=== PATIENT | male | born 1945 | race Caucasian/White ===

== ENCOUNTER 2020-06-01 02:34 | Inpatient (IN) | payer MEDICARE, BC ==
--- NOTE | 2020-06-01 05:07 | EDM.PDOC ---
ED HPI GENERAL MEDICAL PROBLEM - General Chief Complaint: Genitourinary Problem Stated Complaint: BLOOD IN CATHETER Time Seen by Provider: 06/01/20 02:44 - History of Present Illness INITIAL COMMENTS - FREE TEXT/NARRATIVE: Patient had a suprapubic catheter for urinary retention and difficult Alonso placement in March of this year comes from [facility] because he is got blood from his catheter. The patient has no symptoms. History of present illness: [] Review of systems: As per history of present illness and below otherwise all systems reviewed and negative. Past medical history: As per history of present illness and as reviewed below otherwise noncontributory. Surgical history: As per history of present illness and as reviewed below otherwise noncontributory. Social history: No reported history of drug or alcohol abuse. Family history: As per history of present illness and as reviewed below otherwise noncontributory. Physical exam: Constitutional - well developed, well-nourished and in no acute distress HEENT - normocephalic, no evidence of trauma - external nose and mouth normal - no mass in neck and no JVD - mucosae moist EYES - full EOM, PERRL, no icterus - no evidence of inflammation, injection, or drainage Respiratory - no respiratory distress, equal bilateral expansion GI -suprapubic catheter has no irritation around it and it not in any area of inflammation or tenderness. There is blood in the catheter. Abdomen soft without distension or organomegaly - normal bowel sounds - no guard or rebound Musculoskeletal no gross deformity of long bones or joints - no tenderness, swelling or edema Neurologic - Alert and oriented times four - CN II-XII grossly intact - motor sensory and coordination symmetrically normal Psychiatric - appropriate mood and affect with normal thought content Hematologic - No petechiae or purpura - mucosa appropriate color and sclera not pale - normal nail bed color and refill Integument - no rash or evidence of trauma - normal turgor Diagnostics: [] Therapeutics: [] Impression: [] Plan: [] Definitive disposition and diagnosis as appropriate pending reevaluation and review of above. - Related Data Allergies Allergy/AdvReac Type Severity Reaction Status Date / Time No Known Allergies Allergy Verified 06/01/20 03:02 Home Meds: Home Meds Acetaminophen [Tylenol] 650 mg PO Q4H PRN #15 tablet 03/25/20 [Rx] QUEtiapine [SEROquel] 25 mg PO BEDTIME #30 tablet 03/25/20 [Rx] atorvaSTATin [Lipitor] 80 mg PO BEDTIME #60 tablet 03/25/20 [Rx] cephALEXin [Keflex] 500 mg PO Q12H #8 cap 03/25/20 [Rx] lisinopriL [Lisinopril] 20 mg PO DAILY #30 03/25/20 [Rx] Aspirin 81 mg PO DAILY #30 tab.chew 03/26/20 [Rx] Past Medical History HEENT History: Reports: None Cardiovascular History: Reports: High Cholesterol, Hypertension Respiratory History: Reports: None Gastrointestinal History: Reports: None Genitourinary History: Reports: Renal Calculus Musculoskeletal History: Reports: None Neurological History: Reports: None Psychiatric History: Reports: Dementia Endocrine/Metabolic History: Reports: None Insulin Pump Model and Electrician Helper: None Hematologic History: Reports: None Immunologic History: Reports: None Oncologic (Cancer) History: Reports: None Dermatologic History: Reports: None - Infectious Disease History Infectious Disease History: Reports: Novel Coronavirus - Past Surgical History Head Surgeries/Procedures: Reports: None Social & Family History - Caffeine Use Caffeine Use: Reports: None - Recreational Drug Use Recreational Drug Use: No ED ROS GENERAL - Review of Systems Review Of Systems: Comprehensive ROS is negative, except as noted in HPI. ED EXAM, GENERAL - Physical Exam Exam: See Below Free Text/Narrative:: Physical exam is in the HPI Course - Vital Signs Text/Narrative:: Clots were brought out with a liter of irrigation. With 2 more liters of irrigation the urine was reasonably clear and slightly pink-shi but transparent. Full said he does not live in the skilled side of the senior living and this is Tuesday so they can take him back discussed with Dr. Pinto and he agreed to put the patient on observation for CBI Last Recorded V/S: Last Vital Signs Temp 36.5 C 06/01/20 03:00 Pulse 79 06/01/20 05:20 Resp 18 06/01/20 05:20 BP 133/90 06/01/20 05:20 Pulse Ox 96 06/01/20 05:20 - Orders/Labs/Meds Orders: Active Orders 24 hr Category Date Time Status Admission Status [Patient Status] [ADT] Stat ADT 06/01/20 07:11 Ordered Labs: Laboratory Tests 06/01/20 06/01/20 Range/Units 03:23 04:10 WBC 6.79 (4.0-11.0) K/uL RBC 4.93 (4.50-5.90) M/uL Hgb 14.0 (13.0-17.0) g/dL Hct 42.4 (38.0-50.0) % MCV 86.0 (80.0-98.0) fL MCH 28.4 (27.0-32.0) pg MCHC 33.0 (31.0-37.0) g/dL RDW Std Deviation 44.2 (28.0-62.0) fl RDW Coeff of Kaykay 14 (11.0-15.0) % Plt Count 212 (150-400) K/uL MPV 10.10 (7.40-12.00) fL Neut % (Auto) 60.0 (48.0-80.0) % Lymph % (Auto) 24.9 (16.0-40.0) % Cooper % (Auto) 10.6 (0.0-15.0) % Eos % (Auto) 3.8 (0.0-7.0) % Baso % (Auto) 0.7 (0.0-1.5) % Neut # (Auto) 4.1 (1.4-5.7) K/uL Lymph # (Auto) 1.7 (0.6-2.4) K/uL Cooper # (Auto) 0.7 (0.0-0.8) K/uL Eos # (Auto) 0.3 (0.0-0.7) K/uL Baso # (Auto) 0.1 (0.0-0.1) K/uL Nucleated RBC % 0.0 /100WBC Nucleated RBCs # 0 K/uL Urine Color RED Urine Appearance CLOUDY Urine pH 6.5 (5.0-8.0) Ur Specific Brandon 1.010 (1.001-1.035) Urine Protein >=300 H (NEGATIVE) mg/dL Urine Glucose (UA) 100 H (NEGATIVE) mg/dL Urine Ketones 15 H (NEGATIVE) mg/dL Urine Occult Blood LARGE H (NEGATIVE) Urine Nitrite POSITIVE H (NEGATIVE) Urine Bilirubin SMALL H (NEGATIVE) Urine Ictotest NEGATIVE Urine Urobilinogen 4.0 H (<2.0) EU/dL Ur Leukocyte Esterase MODERATE H (NEGATIVE) Urine RBC TOO NUMEROUS TO CT (0-2/HPF) Urine WBC 3-6 (0-5/HPF) Ur Epithelial Cells RARE (NONE-FEW) Urine Bacteria RARE (NEGATIVE) Urinalysis Comment Departure - Departure Time of Disposition: 07:13 Disposition: Home, Self-Care 01 Condition: Good Clinical Impression: Hematuria - Discharge Information Referrals: Ken Jarquin MD [Primary Care Provider] - Forms: ED Department Discharge Sepsis Event Note (ED) - Evaluation Sepsis Screening Result: No Definite Risk - Focused Exam Vital Signs: Vital Signs Temp Pulse Resp BP Pulse Ox 06/01/20 05:20 79 18 133/90 96 06/01/20 04:45 79 18 127/88 97 06/01/20 03:00 36.5 C 90 18 145/109 H 95 - My Orders Last 24 Hours: My Active Orders 06/01/20 07:11 Admission Status [Patient Status] [ADT] Stat - Assessment/Plan Last 24 Hours: My Active Orders 06/01/20 07:11 Admission Status [Patient Status] [ADT] Stat
[2020-06-01 10:49] LABS: BLOOD UREA NITROGEN,BUN 22 mg/dL (7.0-18.0); CARBON DIOXIDE,CO2 28.3 mmol/L (21.0-32.0); CHLORIDE,CL 104 mmol/L (98-107); GLUCOSE RANDOM 110 mg/dL (74-106); POTASSIUM,K 4.7 mmol/L (3.5-5.1); SODIUM,NA 139 mmol/L (136-148)
[2020-06-01] MEDS ORDERED: cefTRIAXone 1 GM Vial IVPUSH ONE (11:07)
--- NOTE | 2020-06-01 11:11 | PCM.HP.2 ---
H&P History of Present Illness - General Date of Service: 06/01/20 Admit Problem/Dx: Admission Diagnosis/Problem Admission Diagnosis/Problem Hematuria - History of Present Illness Initial Comments - Free Text/Narative: 74 yo male with pmh of CVA, dementia, BPH, obstructive uropathy, s/p suprapubic catheter and bladder stone who presents from assisted living with one day history of blood in catheter. In the ED placed three way suprapubic urinary catheter and brought out clots with irrigation which eventually cleared urine. ED referred to admission for further CBI. - Related Data Allergies/Adverse Reactions: Allergies Allergy/AdvReac Type Severity Reaction Status Date / Time No Known Allergies Allergy Verified 06/01/20 11:41 Home Medications: Home Meds Acetaminophen [Tylenol] 650 mg PO Q4H PRN #15 tablet 03/25/20 [Rx] atorvaSTATin [Lipitor] 80 mg PO BEDTIME #60 tablet 03/25/20 [Rx] lisinopriL [Lisinopril] 20 mg PO DAILY #30 03/25/20 [Rx] Aspirin 81 mg PO DAILY #30 tab.chew 03/26/20 [Rx] QUEtiapine [SEROquel] 50 mg PO BEDTIME 06/01/20 [History] Past Medical History HEENT History: Reports: None Cardiovascular History: Reports: High Cholesterol, Hypertension Respiratory History: Reports: None Gastrointestinal History: Reports: None Genitourinary History: Reports: Renal Calculus Musculoskeletal History: Reports: None Neurological History: Reports: None Psychiatric History: Reports: Dementia Endocrine/Metabolic History: Reports: None Insulin Pump Model and Laster Hand: None Hematologic History: Reports: None Immunologic History: Reports: None Oncologic (Cancer) History: Reports: None Dermatologic History: Reports: None - Infectious Disease History Infectious Disease History: Reports: Novel Coronavirus - Past Surgical History Head Surgeries/Procedures: Reports: None Social & Family History - Caffeine Use Caffeine Use: Reports: None - Recreational Drug Use Recreational Drug Use: No H&P Review of Systems - Review of Systems: Review Of Systems: Comprehensive ROS is negative, except as noted in HPI. Exam - Exam Exam: See Below - Vital Signs Vital Signs: Last Vital Signs Temp 36.4 C 06/01/20 09:06 Pulse 85 06/01/20 10:41 Resp 15 06/01/20 09:06 BP 139/99 H 06/01/20 10:41 Pulse Ox 98 06/01/20 10:41 Weight: 61.235 kg - Exam General: Alert, Cooperative HEENT: Mucosa Moist & [place] Lungs: Clear to Auscultation, Normal Respiratory Effort Cardiovascular: Regular Rate, Regular Rhythm GI/Abdominal Exam: Normal Bowel Sounds, Soft, Non-Tender Extremities: Non-Tender, No Pedal Edema Skin: Warm, Dry, Intact - Patient Data Lab Results Last 24 hrs: Laboratory Results - last 24 hr 06/01/20 06/01/20 06/01/20 Range/Units 03:23 03:23 04:10 WBC 6.79 (4.0-11.0) K/uL RBC 4.93 (4.50-5.90) M/uL Hgb 14.0 (13.0-17.0) g/dL Hct 42.4 (38.0-50.0) % MCV 86.0 (80.0-98.0) fL MCH 28.4 (27.0-32.0) pg MCHC 33.0 (31.0-37.0) g/dL RDW Std Deviation 44.2 (28.0-62.0) fl RDW Coeff of Kaykay 14 (11.0-15.0) % Plt Count 212 (150-400) K/uL MPV 10.10 (7.40-12.00) fL Neut % (Auto) 60.0 (48.0-80.0) % Lymph % (Auto) 24.9 (16.0-40.0) % Bollinger % (Auto) 10.6 (0.0-15.0) % Eos % (Auto) 3.8 (0.0-7.0) % Baso % (Auto) 0.7 (0.0-1.5) % Neut # (Auto) 4.1 (1.4-5.7) K/uL Lymph # (Auto) 1.7 (0.6-2.4) K/uL Bollinger # (Auto) 0.7 (0.0-0.8) K/uL Eos # (Auto) 0.3 (0.0-0.7) K/uL Baso # (Auto) 0.1 (0.0-0.1) K/uL Nucleated RBC % 0.0 /100WBC Nucleated RBCs # 0 K/uL Sodium 139 (136-148) mmol/L Potassium 4.7 (3.5-5.1) mmol/L Chloride 104 (98-107) mmol/L Carbon Dioxide 28.3 (21.0-32.0) mmol/L BUN 22 H (7.0-18.0) mg/dL Creatinine 1.1 (0.8-1.3) mg/dL Est Cr Clr Drug Dosing 48.85 mL/min Estimated GFR (MDRD) > 60.0 ml/min Glucose 110 H (74-106) mg/dL Calcium 9.1 (8.5-10.1) mg/dL Total Bilirubin 0.4 (0.2-1.0) mg/dL AST 26 (15-37) IU/L ALT 46 (14-63) IU/L Alkaline Phosphatase 97 (46-116) U/L Total Protein 6.8 (6.4-8.2) g/dL Albumin 3.6 (3.4-5.0) g/dL Globulin 3.2 (2.6-4.0) g/dL Albumin/Globulin Ratio 1.1 (0.9-1.6) Urine Color RED Urine Appearance CLOUDY Urine pH 6.5 (5.0-8.0) Ur Specific [place] 1.010 (1.001-1.035) Urine Protein >=300 H (NEGATIVE) mg/dL Urine Glucose (UA) 100 H (NEGATIVE) mg/dL Urine Ketones 15 H (NEGATIVE) mg/dL Urine Occult Blood LARGE H (NEGATIVE) Urine Nitrite POSITIVE H (NEGATIVE) Urine Bilirubin SMALL H (NEGATIVE) Urine Ictotest NEGATIVE Urine Urobilinogen 4.0 H (<2.0) EU/dL Ur Leukocyte Esterase MODERATE H (NEGATIVE) Urine RBC TOO NUMEROUS TO CT (0-2/HPF) Urine WBC 3-6 (0-5/HPF) Ur Epithelial Cells RARE (NONE-FEW) Urine Bacteria RARE (NEGATIVE) Urinalysis Comment SARS-CoV-2 RNA (IRA) (NEGATIVE) 06/01/20 Range/Units 07:15 WBC (4.0-11.0) K/uL RBC (4.50-5.90) M/uL Hgb (13.0-17.0) g/dL Hct (38.0-50.0) % MCV (80.0-98.0) fL MCH (27.0-32.0) pg MCHC (31.0-37.0) g/dL RDW Std Deviation (28.0-62.0) fl RDW Coeff of Kaykay (11.0-15.0) % Plt Count (150-400) K/uL MPV (7.40-12.00) fL Neut % (Auto) (48.0-80.0) % Lymph % (Auto) (16.0-40.0) % Bollinger % (Auto) (0.0-15.0) % Eos % (Auto) (0.0-7.0) % Baso % (Auto) (0.0-1.5) % Neut # (Auto) (1.4-5.7) K/uL Lymph # (Auto) (0.6-2.4) K/uL Bollinger # (Auto) (0.0-0.8) K/uL Eos # (Auto) (0.0-0.7) K/uL Baso # (Auto) (0.0-0.1) K/uL Nucleated RBC % /100WBC Nucleated RBCs # K/uL Sodium (136-148) mmol/L Potassium (3.5-5.1) mmol/L Chloride (98-107) mmol/L Carbon Dioxide (21.0-32.0) mmol/L BUN (7.0-18.0) mg/dL Creatinine (0.8-1.3) mg/dL Est Cr Clr Drug Dosing mL/min Estimated GFR (MDRD) ml/min Glucose (74-106) mg/dL Calcium (8.5-10.1) mg/dL Total Bilirubin (0.2-1.0) mg/dL AST (15-37) IU/L ALT (14-63) IU/L Alkaline Phosphatase (46-116) U/L Total Protein (6.4-8.2) g/dL Albumin (3.4-5.0) g/dL Globulin (2.6-4.0) g/dL Albumin/Globulin Ratio (0.9-1.6) Urine Color Urine Appearance Urine pH (5.0-8.0) Ur Specific Not[place] (1.001-1.035) Urine Protein (NEGATIVE) mg/dL Urine Glucose (UA) (NEGATIVE) mg/dL Urine Ketones (NEGATIVE) mg/dL Urine Occult Blood (NEGATIVE) Urine Nitrite (NEGATIVE) Urine Bilirubin (NEGATIVE) Urine Ictotest Urine Urobilinogen (<2.0) EU/dL Ur Leukocyte Esterase (NEGATIVE) Urine RBC (0-2/HPF) Urine WBC (0-5/HPF) Ur Epithelial Cells (NONE-FEW) Urine Bacteria (NEGATIVE) Urinalysis Comment SARS-CoV-2 RNA (IRA) NEGATIVE (NEGATIVE) Result Diagrams: 06/03/20 05:08 06/03/20 05:08 Sepsis Event Note - Evaluation Sepsis Screening Result: No Definite Risk - Focused Exam Vital Signs: Vital Signs Temp Pulse Resp BP Pulse Ox 06/01/20 10:41 85 139/99 H 98 06/01/20 09:06 36.4 C 87 15 133/88 97 06/01/20 05:20 79 18 133/90 96 06/01/20 04:45 79 18 127/88 97 06/01/20 03:00 36.5 C 90 18 145/109 H 95 Problem List Initiated/Reviewed/Updated: Yes Orders Last 24hrs: Active Orders 24 hr Category Date Time Status Admission Status [Patient Status] [ADT] Stat ADT 06/01/20 07:11 Active Antiembolic Devices [RC] PER UNIT ROUTINE Care 06/01/20 11:08 Active Oxygen Therapy [RC] PRN Care 06/01/20 11:08 Active Up ad Myra [RC] ASDIRECTED Care 06/01/20 11:08 Active VTE/DVT Education [RC] PER UNIT ROUTINE Care 06/01/20 11:08 Active Vital Signs [RC] Q4H Care 06/01/20 11:08 Active Regular Diet [DIET] Diet 06/01/20 Breakfast Active BASIC METABOLIC PANEL,BMP [CHEM] AM Lab 06/02/20 05:11 Ordered CBC WITH AUTO DIFF [HEME] AM Lab 06/02/20 05:11 Ordered CULTURE URINE [RM] Routine Lab 06/01/20 11:07 Ordered QUEtiapine [SEROqueL] Med 06/01/20 21:00 Active 25 mg PO BEDTIME cefTRIAXone [Rocephin] Med 06/01/20 11:07 Once 1 gm IVPUSH ONETIME ONE Sequential Compression Device [OM.PC] Per Unit Routine Oth 06/01/20 11:08 Ordered Medication Orders Ceftriaxone Sodium (Ceftriaxone 1 Gm Vial) 1 gm IVPUSH ONETIME ONE Stop: 06/01/20 11:08 Quetiapine Fumarate (Quetiapine 50 Mg Tab) 50 mg PO BEDTIME GRISELDA Assessment/Plan Comment:: 74 yo male with pmh of CVA, dementia, BPH, obstructive uropathy, s/p suprapubic catheter and bladder stone admitted for hematuria. We will admit for further CBI. If hematuria does not resolve will consider CT scan and urology consultation.
[2020-06-01] MEDS ORDERED: cefTRIAXone 1 GM in Premix Bag 1 BAG IV SCH (12:00)
[2020-06-01] MEDS ORDERED: Haloperidol Lactate 5 MG/ML SDV IM ONE (22:50)
[2020-06-01] MEDS ORDERED: LORazepam 1 MG Tab PO PRN (22:50)
[2020-06-01] MEDS ORDERED: Haloperidol Lactate 5 MG/ML SDV ONE (23:01)
[2020-06-02] MEDS ORDERED: LORazepam 1 MG Tab ONE (00:11)
[2020-06-02] MEDS ORDERED: OLANZapine 10 MG Vial ONE (00:29)
[2020-06-02] MEDS ORDERED: OLANZapine 10 MG Vial IM ONE ×2 (00:30→23:53)
[2020-06-02 09:48] LABS: BLOOD UREA NITROGEN,BUN 24 mg/dL (7.0-18.0); CARBON DIOXIDE,CO2 24.2 mmol/L (21.0-32.0); CHLORIDE,CL 107 mmol/L (98-107); GLUCOSE RANDOM 101 mg/dL (74-106); POTASSIUM,K 3.9 mmol/L (3.5-5.1); SODIUM,NA 139 mmol/L (136-148)
[2020-06-02] MEDS ORDERED: Acetaminophen 325 MG Tab PO PRN (11:25)
--- NOTE | 2020-06-02 11:27 | PCM.PN ---
- General Info Date of Service: 06/02/20 Admission Dx/Problem (Free Text): Admission Diagnosis/Problem Admission Diagnosis/Problem Hematuria Subjective Update: Doing well this morning. Alert and oriented x3. Denies any chest pain or shortness of breath. Reports mild tenderness around suprapubic catheter insertion site. Urine is clear with no hematuria noted. CBI turned off. Functional Status: Reports: Pain Controlled, Tolerating Diet, Ambulating - Review of Systems General: Reports: No Symptoms. Denies: Weakness HEENT: Reports: No Symptoms. Denies: Ear Pain, Eye Pain, Headaches Pulmonary: Reports: No Symptoms. Denies: Shortness of Breath Cardiovascular: Reports: No Symptoms. Denies: Chest Pain Gastrointestinal: Reports: Abdominal Pain (Mild tenderness around suprapubic catheter insertion site). Denies: Nausea, Vomiting Genitourinary: Reports: No Symptoms. Denies: Dysuria, Frequency, Hematuria Musculoskeletal: Reports: No Symptoms Skin: Reports: No Symptoms Neurological: Reports: No Symptoms Psychiatric: Reports: No Symptoms - Patient Data Vitals - Most Recent: Last Vital Signs Temp 98.4 F 06/02/20 08:48 Pulse 92 06/02/20 08:48 Resp 16 06/02/20 08:48 BP 148/90 H 06/02/20 08:48 Pulse Ox 93 L 06/02/20 08:48 Weight - Most Recent: 54 kg I&O - Last 24 Hours: Intake & Output 06/01/20 06/02/20 06/02/20 22:59 06:59 14:59 Intake Total 360 200 Output Total 700 Balance -340 200 Lab Results Last 24 Hours: Laboratory Results - last 24 hr 06/02/20 06/02/20 Range/Units 08:57 08:57 WBC 7.07 (4.0-11.0) K/uL RBC 4.68 (4.50-5.90) M/uL Hgb 13.2 (13.0-17.0) g/dL Hct 39.9 (38.0-50.0) % MCV 85.3 (80.0-98.0) fL MCH 28.2 (27.0-32.0) pg MCHC 33.1 (31.0-37.0) g/dL RDW Std Deviation 44.2 (28.0-62.0) fl RDW Coeff of Kaykay 14 (11.0-15.0) % Plt Count 200 (150-400) K/uL MPV 10.20 (7.40-12.00) fL Neut % (Auto) 65.1 (48.0-80.0) % Lymph % (Auto) 20.5 (16.0-40.0) % Evans % (Auto) 11.7 (0.0-15.0) % Eos % (Auto) 2.3 (0.0-7.0) % Baso % (Auto) 0.4 (0.0-1.5) % Neut # (Auto) 4.6 (1.4-5.7) K/uL Lymph # (Auto) 1.5 (0.6-2.4) K/uL Evans # (Auto) 0.8 (0.0-0.8) K/uL Eos # (Auto) 0.2 (0.0-0.7) K/uL Baso # (Auto) 0.0 (0.0-0.1) K/uL Nucleated RBC % 0.0 /100WBC Nucleated RBCs # 0 K/uL Sodium 139 (136-148) mmol/L Potassium 3.9 (3.5-5.1) mmol/L Chloride 107 (98-107) mmol/L Carbon Dioxide 24.2 (21.0-32.0) mmol/L BUN 24 H (7.0-18.0) mg/dL Creatinine 1.0 (0.8-1.3) mg/dL Est Cr Clr Drug Dosing 51.00 mL/min Estimated GFR (MDRD) > 60.0 ml/min Glucose 101 (74-106) mg/dL Calcium 8.6 (8.5-10.1) mg/dL Med Orders - Current: Current Medications Lorazepam (Lorazepam 1 Mg Tab) 1 mg PO Q8H PRN PRN Reason: Anxiety Quetiapine Fumarate (Quetiapine 50 Mg Tab) 50 mg PO BEDTIME [facility] Last Admin: 06/02/20 09:26 Dose: Not Given Documented by: Discontinued Medications Haloperidol Lactate (Haloperidol Lactate 5 Mg/Ml Sdv) Confirm Administered Dose 5 mg .ROUTE .STK-MED ONE Stop: 06/01/20 23:02 Last Admin: 06/01/20 23:01 Dose: Not Given Documented by: Haloperidol Lactate (Haloperidol Lactate 5 Mg/Ml Sdv) 5 mg IM ONETIME ONE Stop: 06/01/20 22:51 Last Admin: 06/01/20 22:50 Dose: 5 mg Documented by: Ceftriaxone Sodium/Dextrose 1 (gm/ Premix) 50 mls @ 100 mls/hr IV 06/01/20@1200 GRISELDA Stop: 06/01/20 12:29 Last Admin: 06/01/20 12:02 Dose: 100 mls/hr Documented by: Lorazepam (Lorazepam 1 Mg Tab) Confirm Administered Dose 1 mg .ROUTE .STK-MED ONE Stop: 06/02/20 00:12 Last Admin: 06/02/20 03:09 Dose: Not Given Documented by: Olanzapine (Olanzapine 10 Mg Vial) Confirm Administered Dose 10 mg .ROUTE .STK- MED ONE Stop: 06/02/20 00:30 Olanzapine (Olanzapine 10 Mg Vial) 5 mg IM ONETIME ONE Stop: 06/02/20 00:31 - Exam Quality Assessment: No: Restraints (One-to-one sitter at bedside restraints are off at this time.) General: Alert, Oriented, Cooperative, No Acute Distress Neck: Supple Lungs: Clear to Auscultation, Normal Respiratory Effort Cardiovascular: Regular Rate, Regular Rhythm GI/Abdominal Exam: Normal Bowel Sounds, Soft, Non-Tender (Male) Exam: Other (Suprapubic catheter site intact with no significant drainage.) Extremities: Normal Inspection, Normal Range of Motion, Non-Tender, No Pedal Edema Neurological: No New Focal Deficit Psy/Mental Status: Alert, Normal Affect, Normal Mood. No: Anxious, Agitated - Patient Data Lab Results Last 24 hrs: Laboratory Results - last 24 hr 06/02/20 06/02/20 Range/Units 08:57 08:57 WBC 7.07 (4.0-11.0) K/uL RBC 4.68 (4.50-5.90) M/uL Hgb 13.2 (13.0-17.0) g/dL Hct 39.9 (38.0-50.0) % MCV 85.3 (80.0-98.0) fL MCH 28.2 (27.0-32.0) pg MCHC 33.1 (31.0-37.0) g/dL RDW Std Deviation 44.2 (28.0-62.0) fl RDW Coeff of Kaykay 14 (11.0-15.0) % Plt Count 200 (150-400) K/uL MPV 10.20 (7.40-12.00) fL Neut % (Auto) 65.1 (48.0-80.0) % Lymph % (Auto) 20.5 (16.0-40.0) % Evans % (Auto) 11.7 (0.0-15.0) % Eos % (Auto) 2.3 (0.0-7.0) % Baso % (Auto) 0.4 (0.0-1.5) % Neut # (Auto) 4.6 (1.4-5.7) K/uL Lymph # (Auto) 1.5 (0.6-2.4) K/uL Evans # (Auto) 0.8 (0.0-0.8) K/uL Eos # (Auto) 0.2 (0.0-0.7) K/uL Baso # (Auto) 0.0 (0.0-0.1) K/uL Nucleated RBC % 0.0 /100WBC Nucleated RBCs # 0 K/uL Sodium 139 (136-148) mmol/L Potassium 3.9 (3.5-5.1) mmol/L Chloride 107 (98-107) mmol/L Carbon Dioxide 24.2 (21.0-32.0) mmol/L BUN 24 H (7.0-18.0) mg/dL Creatinine 1.0 (0.8-1.3) mg/dL Est Cr Clr Drug Dosing 51.00 mL/min Estimated GFR (MDRD) > 60.0 ml/min Glucose 101 (74-106) mg/dL Calcium 8.6 (8.5-10.1) mg/dL Result Diagrams: 06/02/20 08:57 06/02/20 08:57 Sepsis Event Note - Evaluation Sepsis Screening Result: No Definite Risk - Focused Exam Vital Signs: Vital Signs Temp Pulse Resp BP Pulse Ox 06/02/20 08:48 98.4 F 92 16 148/90 H 93 L 06/02/20 04:00 98.1 F 93 19 153/92 H 96 - Problem List & Annotations (1) Gross hematuria SNOMED Code(s): 922950348 Code(s): R31.0 - GROSS HEMATURIA Status: Acute Current Visit: No (2) UTI (urinary tract infection) SNOMED Code(s): 47805857 Code(s): N39.0 - URINARY TRACT INFECTION, SITE NOT SPECIFIED Status: Acute Current Visit: No (3) BPH (benign prostatic hyperplasia) SNOMED Code(s): 654721653 Code(s): N40.0 - BENIGN PROSTATIC HYPERPLASIA WITHOUT LOWER URINRY TRACT SYMP Status: Chronic Current Visit: No (4) CVA (cerebral vascular accident) SNOMED Code(s): 566020901 Code(s): I63.9 - CEREBRAL INFARCTION, UNSPECIFIED Status: Chronic Current Visit: No (5) Hypertension SNOMED Code(s): 36207317 Code(s): I10 - ESSENTIAL (PRIMARY) HYPERTENSION Status: Chronic Current Visit: No Qualifiers: Hypertension type: essential hypertension Qualified Code(s): I10 - Essential (primary) hypertension (6) Vascular dementia SNOMED Code(s): 625102049 Code(s): F01.50 - VASCULAR DEMENTIA WITHOUT BEHAVIORAL DISTURBANCE Status: Chronic Current Visit: No - Problem List Review Problem List Initiated/Reviewed/Updated: Yes - My Orders Last 24 Hours: My Active Orders 06/02/20 09:20 Patient Status [ADT] Stat - Plan Plan:: 74 yo male with pmh of CVA, dementia, BPH, obstructive uropathy, s/p suprapubic catheter and bladder stone admitted for hematuria. 1. Hematuria and UTI -CBI stopped his hematuria has resolved. We will continue to monitor -UC pending -Continue Rocephin 1 g IV daily -Concerned that patient is pulling or tugging on suprapubic catheter when he becomes agitated and evening secondary to vascular dementia. 2. CVA/HTN -Continue lisinopril and atorvastatin -Hold aspirin for now secondary to hematuria 3. 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 VTE prophylaxis: SCDs and ambulation no pharmacologic agent as he is having hematuria CODE STATUS: DNR/DNI Dispo: We will change to inpatient as he needs further evaluation and treatment. [facility] for [facility] management.
[2020-06-02] MEDS: cefTRIAXone 1 GM in Premix Bag 1 BAG IV SCH (11:55)
[2020-06-02] MEDS: atorvaSTATin 40 MG Tab PO SCH (20:33)
[2020-06-03 05:58] LABS: CARBON DIOXIDE,CO2 23.5 mmol/L (21.0-32.0); POTASSIUM,K 3.9 mmol/L (3.5-5.1)
[2020-06-03] MEDS: Lisinopril 10 MG Tab PO SCH (08:28)
[2020-06-03] MEDS: cefTRIAXone 1 GM in Premix Bag 1 BAG IV SCH (10:33)
--- NOTE | 2020-06-03 11:10 | PCM.PN ---
- General Info Date of Service: 06/03/20 - Review of Systems Systems Review Comment:: no concerns, sundowning at night, but is pleasant this morning - Patient Data Vitals - Most Recent: Last Vital Signs Temp 36.3 C 06/03/20 07:25 Pulse 94 06/03/20 07:25 Resp 15 06/03/20 07:25 BP 148/92 H 06/03/20 08:28 Pulse Ox 97 06/03/20 07:25 Weight - Most Recent: 54 kg I&O - Last 24 Hours: Intake & Output 06/02/20 06/03/20 06/03/20 22:59 06:59 14:59 Intake Total 1130 680 Output Total 1000 2300 Balance 130 -1620 Lab Results Last 24 Hours: Laboratory Results - last 24 hr 06/03/20 06/03/20 Range/Units 05:08 05:08 WBC 6.61 (4.0-11.0) K/uL RBC 4.50 (4.50-5.90) M/uL Hgb 12.7 L (13.0-17.0) g/dL Hct 38.6 (38.0-50.0) % MCV 85.8 (80.0-98.0) fL MCH 28.2 (27.0-32.0) pg MCHC 32.9 (31.0-37.0) g/dL RDW Std Deviation 44.0 (28.0-62.0) fl RDW Coeff of [place] 14 (11.0-15.0) % Plt Count 202 (150-400) K/uL MPV 10.10 (7.40-12.00) fL Neut % (Auto) 63.1 (48.0-80.0) % Lymph % (Auto) 23.1 (16.0-40.0) % Towns % (Auto) 9.7 (0.0-15.0) % Eos % (Auto) 3.5 (0.0-7.0) % Baso % (Auto) 0.6 (0.0-1.5) % Neut # (Auto) 4.2 (1.4-5.7) K/uL Lymph # (Auto) 1.5 (0.6-2.4) K/uL Towns # (Auto) 0.6 (0.0-0.8) K/uL Eos # (Auto) 0.2 (0.0-0.7) K/uL Baso # (Auto) 0.0 (0.0-0.1) K/uL Nucleated RBC % 0.0 /100WBC Nucleated RBCs # 0 K/uL Sodium 143 (136-148) mmol/L Potassium 3.9 (3.5-5.1) mmol/L Chloride 107 (98-107) mmol/L Carbon Dioxide 23.5 (21.0-32.0) mmol/L BUN 28 H (7.0-18.0) mg/dL Creatinine 1.2 (0.8-1.3) mg/dL Est Cr Clr Drug Dosing 42.50 mL/min Estimated GFR (MDRD) 59.5 ml/min Glucose 107 H (74-106) mg/dL Calcium 8.5 (8.5-10.1) mg/dL Phosphorus 3.3 (2.6-4.7) mg/dL Magnesium 1.9 (1.8-2.4) mg/dL Danny Results Last 24 Hours: Microbiology 06/01/20 04:10 Urine Culture - Final Urine, Alonso Cath (Indwelling) Staphylococcus Epidermidis Med Orders - Current: Current Medications Acetaminophen (Acetaminophen 325 Mg Tab) 650 mg PO Q4H PRN PRN Reason: Pain Atorvastatin Calcium (Atorvastatin 40 Mg Tab) 80 mg PO BEDTIME [facility] Last Admin: 06/02/20 20:33 Dose: 80 mg Documented by: Ceftriaxone Sodium/Dextrose 1 (gm/ Premix) 50 mls @ 100 mls/hr IV Q24H [facility] Last Admin: 06/03/20 10:33 Dose: 100 mls/hr Documented by: Lisinopril (Lisinopril 10 Mg Tab) 20 mg PO DAILY [facility] Last Admin: 06/03/20 08:28 Dose: 20 mg Documented by: Lorazepam (Lorazepam 1 Mg Tab) 1 mg PO Q8H PRN PRN Reason: Anxiety Quetiapine Fumarate (Quetiapine 50 Mg Tab) 50 mg PO BEDTIME [facility] Last Admin: 06/02/20 20:34 Dose: 50 mg Documented by: Discontinued Medications Haloperidol Lactate (Haloperidol Lactate 5 Mg/Ml Sdv) Confirm Administered Dose 5 mg .ROUTE .STK-MED ONE Stop: 06/01/20 23:02 Last Admin: 06/01/20 23:01 Dose: Not Given Documented by: Haloperidol Lactate (Haloperidol Lactate 5 Mg/Ml Sdv) 5 mg IM ONETIME ONE Stop: 06/01/20 22:51 Last Admin: 06/01/20 22:50 Dose: 5 mg Documented by: Ceftriaxone Sodium/Dextrose 1 (gm/ Premix) 50 mls @ 100 mls/hr IV 06/01/20@1200 [facility] Stop: 06/01/20 12:29 Last Admin: 06/01/20 12:02 Dose: 100 mls/hr Documented by: Lorazepam (Lorazepam 1 Mg Tab) Confirm Administered Dose 0 mg .ROUTE .STK-MED ONE Stop: 06/02/20 00:12 Last Admin: 06/02/20 03:09 Dose: Not Given Documented by: Olanzapine (Olanzapine 10 Mg Vial) Confirm Administered Dose 10 mg .ROUTE .STK- MED ONE Stop: 06/02/20 00:30 Last Admin: 06/02/20 12:03 Dose: Not Given Documented by: Olanzapine (Olanzapine 10 Mg Vial) 5 mg IM ONETIME ONE Stop: 06/02/20 00:31 Last Admin: 06/02/20 12:03 Dose: Not Given Documented by: Olanzapine (Olanzapine 10 Mg Vial) 5 mg IM ONETIME ONE Stop: 06/02/20 23:54 Last Admin: 06/03/20 00:22 Dose: 5 mg Documented by: - Exam General: Alert, Cooperative Neck: Supple Lungs: Clear to Auscultation, Normal Respiratory Effort Cardiovascular: Regular Rate, Regular Rhythm GI/Abdominal Exam: Soft, Non-Tender, No Distention Extremities: Non-Tender, No Pedal Edema Skin: Warm, Dry, Intact Neurological: No New Focal Deficit - Patient Data Lab Results Last 24 hrs: Laboratory Results - last 24 hr 06/03/20 06/03/20 Range/Units 05:08 05:08 WBC 6.61 (4.0-11.0) K/uL RBC 4.50 (4.50-5.90) M/uL Hgb 12.7 L (13.0-17.0) g/dL Hct 38.6 (38.0-50.0) % MCV 85.8 (80.0-98.0) fL MCH 28.2 (27.0-32.0) pg MCHC 32.9 (31.0-37.0) g/dL RDW Std Deviation 44.0 (28.0-62.0) fl RDW Coeff of [place] 14 (11.0-15.0) % Plt Count 202 (150-400) K/uL MPV 10.10 (7.40-12.00) fL Neut % (Auto) 63.1 (48.0-80.0) % Lymph % (Auto) 23.1 (16.0-40.0) % Towns % (Auto) 9.7 (0.0-15.0) % Eos % (Auto) 3.5 (0.0-7.0) % Baso % (Auto) 0.6 (0.0-1.5) % Neut # (Auto) 4.2 (1.4-5.7) K/uL Lymph # (Auto) 1.5 (0.6-2.4) K/uL Towns # (Auto) 0.6 (0.0-0.8) K/uL Eos # (Auto) 0.2 (0.0-0.7) K/uL Baso # (Auto) 0.0 (0.0-0.1) K/uL Nucleated RBC % 0.0 /100WBC Nucleated RBCs # 0 K/uL Sodium 143 (136-148) mmol/L Potassium 3.9 (3.5-5.1) mmol/L Chloride 107 (98-107) mmol/L Carbon Dioxide 23.5 (21.0-32.0) mmol/L BUN 28 H (7.0-18.0) mg/dL Creatinine 1.2 (0.8-1.3) mg/dL Est Cr Clr Drug Dosing 42.50 mL/min Estimated GFR (MDRD) 59.5 ml/min Glucose 107 H (74-106) mg/dL Calcium 8.5 (8.5-10.1) mg/dL Phosphorus 3.3 (2.6-4.7) mg/dL Magnesium 1.9 (1.8-2.4) mg/dL Result Diagrams: 06/03/20 05:08 06/03/20 05:08 Danny Results Last 24 hrs: Microbiology 06/01/20 04:10 Urine Culture - Final Urine, Alonso Cath (Indwelling) Staphylococcus Epidermidis Sepsis Event Note - Evaluation Sepsis Screening Result: No Definite Risk - Focused Exam Vital Signs: Vital Signs Temp Pulse Resp BP BP Pulse Ox 06/03/20 08:28 148/92 H 06/03/20 07:25 36.3 C 94 15 160/84 H 97 06/03/20 04:25 36.0 C L 88 16 175/105 H 95 06/03/20 04:00 160/102 H - Problem List Review Problem List Initiated/Reviewed/Updated: Yes - My Orders Last 24 Hours: My Active Orders 06/02/20 21:13 C DIFFICILE AG/TOXIN W/REFLEX [RM] Routine 06/03/20 00:00 Initiate/Renew Violent-Self Destructive Restraints >/=18yo Q4H 06/03/20 04:00 Initiate/Renew Violent-Self Destructive Restraints >/=18yo Q4H 06/03/20 08:00 Initiate/Renew Violent-Self Destructive Restraints >/=18yo Q4H - Plan Plan:: 74 yo male with pmh of CVA, dementia, BPH, obstructive uropathy, s/p suprapubic catheter and bladder stone admitted for hematuria. 1. Hematuria and UTI -CBI stopped his hematuria has resolved. We will continue to monitor -will switch to antibiotics to BActrim 2. CVA/HTN -Continue lisinopril and atorvastatin -Hold aspirin for now secondary to hematuria 3. 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 VTE prophylaxis: SCDs and ambulation no pharmacologic agent as he is having hematuria CODE STATUS: DNR/DNI Dispo: pending placement
[2020-06-03] MEDS: Sulfamethoxazole/Trimethoprim 800-160 MG Tab PO SCH ×2 (12:06→20:48)
[2020-06-03] MEDS: atorvaSTATin 40 MG Tab PO SCH (20:48)
[2020-06-03] MEDS ORDERED: OLANZapine 10 MG Vial IM ONE (23:45)
[2020-06-03] MEDS ORDERED: OLANZapine 5 MG in Water For Injection, Sterile 2.1 ML IM ONE (23:49)
[2020-06-04 07:49] LABS: CARBON DIOXIDE,CO2 24.8 mmol/L (21.0-32.0); POTASSIUM,K 4.2 mmol/L (3.5-5.1)
[2020-06-04] MEDS: Sulfamethoxazole/Trimethoprim 800-160 MG Tab PO SCH (08:28)
[2020-06-04] MEDS: Lisinopril 10 MG Tab PO SCH (08:29)
--- NOTE | 2020-06-04 09:01 | PCM.PN ---
- General Info Date of Service: 06/04/20 Admission Dx/Problem (Free Text): Admission Diagnosis/Problem Admission Diagnosis/Problem Hematuria Subjective Update: Reports he is unclear of what happened last night. Denies any chest pain shortness of breath or abdominal pain. Has been up ambulating in the room with one-to-one sitter. Functional Status: Reports: Pain Controlled, Tolerating Diet, Ambulating - Review of Systems General: Reports: Fatigue. Denies: Weakness HEENT: Reports: No Symptoms Pulmonary: Reports: No Symptoms. Denies: Shortness of Breath, Cough Cardiovascular: Reports: No Symptoms. Denies: Chest Pain Gastrointestinal: Reports: No Symptoms. Denies: Abdominal Pain, Nausea, Vomi ting Genitourinary: Reports: No Symptoms. Denies: Dysuria, Frequency Skin: Reports: No Symptoms Neurological: Reports: No Symptoms, Confusion Psychiatric: Reports: No Symptoms - Patient Data Vitals - Most Recent: Last Vital Signs Temp 97.4 F 06/04/20 08:00 Pulse 93 06/04/20 08:00 Resp 20 06/04/20 08:00 BP 119/69 06/04/20 08:29 Pulse Ox 95 06/04/20 08:00 Weight - Most Recent: 54 kg I&O - Last 24 Hours: Intake & Output 06/03/20 06/04/20 06/04/20 22:59 06:59 14:59 Intake Total 720 350 Output Total 350 1100 Balance 370 -750 Lab Results Last 24 Hours: Laboratory Results - last 24 hr 06/04/20 06/04/20 Range/Units 07:13 07:13 WBC 7.61 (4.0-11.0) K/uL RBC 4.36 L (4.50-5.90) M/uL Hgb 12.3 L (13.0-17.0) g/dL Hct 37.5 L (38.0-50.0) % MCV 86.0 (80.0-98.0) fL MCH 28.2 (27.0-32.0) pg MCHC 32.8 (31.0-37.0) g/dL RDW Std Deviation 45.1 (28.0-62.0) fl RDW Coeff of [place] 14 (11.0-15.0) % Plt Count 204 (150-400) K/uL MPV 10.20 (7.40-12.00) fL Neut % (Auto) 65.2 (48.0-80.0) % Lymph % (Auto) 20.8 (16.0-40.0) % [place] % (Auto) 10.6 (0.0-15.0) % Eos % (Auto) 3.0 (0.0-7.0) % Baso % (Auto) 0.4 (0.0-1.5) % Neut # (Auto) 5.0 (1.4-5.7) K/uL Lymph # (Auto) 1.6 (0.6-2.4) K/uL [place] # (Auto) 0.8 (0.0-0.8) K/uL Eos # (Auto) 0.2 (0.0-0.7) K/uL Baso # (Auto) 0.0 (0.0-0.1) K/uL Nucleated RBC % 0.0 /100WBC Nucleated RBCs # 0 K/uL Sodium 142 (136-148) mmol/L Potassium 4.2 (3.5-5.1) mmol/L Chloride 108 H (98-107) mmol/L Carbon Dioxide 24.8 (21.0-32.0) mmol/L BUN 28 H (7.0-18.0) mg/dL Creatinine 1.5 H (0.8-1.3) mg/dL Est Cr Clr Drug Dosing 34.00 mL/min Estimated GFR (MDRD) 46.0 ml/min Glucose 102 (74-106) mg/dL Calcium 8.6 (8.5-10.1) mg/dL Phosphorus 4.3 (2.6-4.7) mg/dL Magnesium 2.2 (1.8-2.4) mg/dL Danny Results Last 24 Hours: Microbiology 06/01/20 04:10 Urine Culture - Final Urine, Alonso Cath ([place]) Staphylococcus Epidermidis Med Orders - Current: Current Medications Acetaminophen (Acetaminophen 325 Mg Tab) 650 mg PO Q4H PRN PRN Reason: Pain Atorvastatin Calcium (Atorvastatin 40 Mg Tab) 80 mg PO BEDTIME [facility] Last Admin: 06/03/20 20:48 Dose: 80 mg Documented by: Lisinopril (Lisinopril 10 Mg Tab) 20 mg PO DAILY [facility] Last Admin: 06/04/20 08:29 Dose: 20 mg Documented by: Lorazepam (Lorazepam 1 Mg Tab) 1 mg PO Q8H PRN PRN Reason: Anxiety Quetiapine Fumarate (Quetiapine 50 Mg Tab) 50 mg PO BEDTIME [facility] Last Admin: 06/03/20 20:48 Dose: 50 mg Documented by: Trimethoprim/Sulfamethoxazole (Sulfamethoxazole/Trimethoprim 800-160 Mg Tab) 1 tab PO BID [facility] Last Admin: 06/04/20 08:28 Dose: 1 tab Documented by: Discontinued Medications Haloperidol Lactate (Haloperidol Lactate 5 Mg/Ml Sdv) Confirm Administered Dose 5 mg .ROUTE .STK-MED ONE Stop: 06/01/20 23:02 Last Admin: 06/01/20 23:01 Dose: Not Given Documented by: Haloperidol Lactate (Haloperidol Lactate 5 Mg/Ml Sdv) 5 mg IM ONETIME ONE Stop: 06/01/20 22:51 Last Admin: 06/01/20 22:50 Dose: 5 mg Documented by: Ceftriaxone Sodium/Dextrose 1 (gm/ Premix) 50 mls @ 100 mls/hr IV 06/01/20@1200 [facility] Stop: 06/01/20 12:29 Last Admin: 06/01/20 12:02 Dose: 100 mls/hr Documented by: Ceftriaxone Sodium/Dextrose 1 (gm/ Premix) 50 mls @ 100 mls/hr IV Q24H [facility] Last Admin: 06/03/20 10:33 Dose: 100 mls/hr Documented by: Lorazepam (Lorazepam 1 Mg Tab) Confirm Administered Dose 0 mg .ROUTE .STK-MED ONE Stop: 06/02/20 00:12 Last Admin: 06/02/20 03:09 Dose: Not Given Documented by: Olanzapine (Olanzapine 10 Mg Vial) Confirm Administered Dose 10 mg .ROUTE .STK-M ED ONE Stop: 06/02/20 00:30 Last Admin: 06/02/20 12:03 Dose: Not Given Documented by: Olanzapine (Olanzapine 10 Mg Vial) 5 mg IM ONETIME ONE Stop: 06/02/20 00:31 Last Admin: 06/02/20 12:03 Dose: Not Given Documented by: Olanzapine (Olanzapine 10 Mg Vial) 5 mg IM ONETIME ONE Stop: 06/02/20 23:54 Last Admin: 06/03/20 00:22 Dose: 5 mg Documented by: Olanzapine (Olanzapine 10 Mg Vial) 5 mg IM NOW ONE Stop: 06/03/20 23:46 Last Admin: 06/04/20 00:14 Dose: 5 mg Documented by: - Exam General: Alert, Oriented, Cooperative, No Acute Distress Lungs: Clear to Auscultation, Normal Respiratory Effort Cardiovascular: Regular Rate, Regular Rhythm GI/Abdominal Exam: Normal Bowel Sounds, Soft, Non-Tender (Male) Exam: Other (Suprapubic catheter draining clear yellow urine) Back Exam: Normal Inspection, Full Range of Motion Extremities: Normal Inspection, Normal Range of Motion, Non-Tender, No Pedal Edema Wound/Incisions: Healing Well Neurological: No New Focal Deficit Psy/Mental Status: Alert, Normal Affect, Normal Mood - Patient Data Lab Results Last 24 hrs: Laboratory Results - last 24 hr 06/04/20 06/04/20 Range/Units 07:13 07:13 WBC 7.61 (4.0-11.0) K/uL RBC 4.36 L (4.50-5.90) M/uL Hgb 12.3 L (13.0-17.0) g/dL Hct 37.5 L (38.0-50.0) % MCV 86.0 (80.0-98.0) fL MCH 28.2 (27.0-32.0) pg MCHC 32.8 (31.0-37.0) g/dL RDW Std Deviation 45.1 (28.0-62.0) fl RDW Coeff of [place] 14 (11.0-15.0) % Plt Count 204 (150-400) K/uL MPV 10.20 (7.40-12.00) fL Neut % (Auto) 65.2 (48.0-80.0) % Lymph % (Auto) 20.8 (16.0-40.0) % [place] % (Auto) 10.6 (0.0-15.0) % Eos % (Auto) 3.0 (0.0-7.0) % Baso % (Auto) 0.4 (0.0-1.5) % Neut # (Auto) 5.0 (1.4-5.7) K/uL Lymph # (Auto) 1.6 (0.6-2.4) K/uL [place] # (Auto) 0.8 (0.0-0.8) K/uL Eos # (Auto) 0.2 (0.0-0.7) K/uL Baso # (Auto) 0.0 (0.0-0.1) K/uL Nucleated RBC % 0.0 /100WBC Nucleated RBCs # 0 K/uL Sodium 142 (136-148) mmol/L Potassium 4.2 (3.5-5.1) mmol/L Chloride 108 H (98-107) mmol/L Carbon Dioxide 24.8 (21.0-32.0) mmol/L BUN 28 H (7.0-18.0) mg/dL Creatinine 1.5 H (0.8-1.3) mg/dL Est Cr Clr Drug Dosing 34.00 mL/min Estimated GFR (MDRD) 46.0 ml/min Glucose 102 (74-106) mg/dL Calcium 8.6 (8.5-10.1) mg/dL Phosphorus 4.3 (2.6-4.7) mg/dL Magnesium 2.2 (1.8-2.4) mg/dL Result Diagrams: 06/04/20 07:13 06/04/20 07:13 Danny Results Last 24 hrs: Microbiology 06/01/20 04:10 Urine Culture - Final Urine, Alonso Cath ([place]) Staphylococcus Epidermidis Sepsis Event Note - Evaluation Sepsis Screening Result: No Definite Risk - Focused Exam Vital Signs: Vital Signs Temp Pulse Resp BP BP Pulse Ox 06/04/20 08:29 119/69 06/04/20 08:00 97.4 F 93 20 119/69 95 06/04/20 04:00 97.7 F 94 16 122/78 97 06/04/20 00:00 97.7 F 102 H 15 111/76 98 - Problem List & Annotations (1) Gross hematuria SNOMED Code(s): 306480503 Code(s): R31.0 - GROSS HEMATURIA Status: Acute Current Visit: No (2) UTI (urinary tract infection) SNOMED Code(s): 61888081 Code(s): N39.0 - URINARY TRACT INFECTION, SITE NOT SPECIFIED Status: Acute Current Visit: No (3) BPH (benign prostatic hyperplasia) SNOMED Code(s): 264814201 Code(s): N40.0 - BENIGN PROSTATIC HYPERPLASIA WITHOUT LOWER URINRY TRACT SYMP Status: Chronic Current Visit: No (4) CVA (cerebral vascular accident) SNOMED Code(s): 852465411 Code(s): I63.9 - CEREBRAL INFARCTION, UNSPECIFIED Status: Chronic Current Visit: No (5) Hypertension SNOMED Code(s): 31208204 Code(s): I10 - ESSENTIAL (PRIMARY) HYPERTENSION Status: Chronic Current Visit: No Qualifiers: Hypertension type: essential hypertension Qualified Code(s): I10 - Essential (primary) hypertension (6) Vascular dementia SNOMED Code(s): 504547640 Code(s): F01.50 - VASCULAR DEMENTIA WITHOUT BEHAVIORAL DISTURBANCE Status: Chronic Current Visit: No - Problem List Review Problem List Initiated/Reviewed/Updated: Yes - My Orders Last 24 Hours: My Active Orders 06/03/20 09:00 lisinopriL [Prinivil] 20 mg PO DAILY 06/05/20 05:11 BASIC METABOLIC PANEL,BMP [CHEM] AM CBC WITH AUTO DIFF [HEME] AM MAGNESIUM [CHEM] AM PHOSPHORUS [CHEM] AM 06/06/20 05:11 BASIC METABOLIC PANEL,BMP [CHEM] AM CBC WITH AUTO DIFF [HEME] AM MAGNESIUM [CHEM] AM PHOSPHORUS [CHEM] AM 06/07/20 05:11 BASIC METABOLIC PANEL,BMP [CHEM] AM CBC WITH AUTO DIFF [HEME] AM MAGNESIUM [CHEM] AM PHOSPHORUS [CHEM] AM - Plan Plan:: 74 yo male with pmh of CVA, dementia, BPH, obstructive uropathy, s/p suprapubic catheter and bladder stone admitted for hematuria. 1. Hematuria and UTI -Hematuria has resolved -Stop bactrim with bump in Cr -Start Linezolid BID. 2. CVA/HTN -Continue lisinopril and atorvastatin -Hold aspirin for now secondary to hematuria 3. 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 VTE prophylaxis: SCDs and ambulation no pharmacologic agent as he is having hematuria CODE STATUS: DNR/DNI Dispo: pending placement, likely placement tomorrow morning with [facility].
[2020-06-04] MEDS: Linezolid 600 MG Tab PO SCH (20:12)
[2020-06-04] MEDS: atorvaSTATin 40 MG Tab PO SCH (20:12)
[2020-06-05] MEDS: Lisinopril 10 MG Tab PO SCH (10:40)
[2020-06-05] MEDS: Linezolid 600 MG Tab PO SCH (10:44)
--- NOTE | 2020-06-05 12:38 | PCM.DCSUM1 ---
Discharge Summary - Hospital Course Diagnosis: Stroke: No - Discharge Data Discharge Date: 06/05/20 Discharge Disposition: DC/[facility]fer to [facility] Condition: Stable - Referral to Home Health Primary Care Physician: Ken Jarquin MD - Patient Summary/Data Hospital Course: 74 yo male with pmh of CVA, dementia, BPH, obstructive uropathy, s/p suprapubic catheter and bladder stone who presentsed from assisted living with one day history of blood in catheter. In the ED placed three way suprapubic urinary catheter and brought out clots with irrigation which eventually cleared urine. ED referred to admission for further CBI. PAtient was placed on CBI for a day but once urine remained clear it was discontinued. He did have significant incr ease in his dementia with delerium at [facility] requiring olanzapine and soft restraints for several nights but this did improve with time similar to his last admission. He was treated for urinary tract initially with Rocephin but was switch to Bactrim for a day based on urine culture sensitivities of the Staphylococcus Epidermidis. With a slight increase in Creatinine yesterday he was switch to Linezolid. He was discharged to [facility] for skill nursing care. - Patient Instructions Diet: Heart Healthy Diet Activity: As Tolerated Driving: Do Not Drive Showering/Bathing: May Shower Notify Provider of: Fever, Increased Pain, Swelling and Redness, Drainage, Nausea and/or Vomiting Other/Special Instructions: Suprapubic catheter cares per facility policy. PT/OT/ST to evaluate and treat - Discharge Plan *PRESCRIPTION DRUG MONITORING PROGRAM REVIEWED*: Not Applicable *COPY OF PRESCRIPTION DRUG MONITORING REPORT IN PATIENT [place]: Not Applicable Prescriptions/Med Rec: Linezolid 600 mg PO BID #12 tablet Home Medications: Home Meds Acetaminophen [Tylenol] 650 mg PO Q4H PRN #15 tablet 03/25/20 [Rx] atorvaSTATin [Lipitor] 80 mg PO BEDTIME #60 tablet 03/25/20 [Rx] lisinopriL [Lisinopril] 20 mg PO DAILY #30 03/25/20 [Rx] Aspirin 81 mg PO DAILY #30 tab.chew 03/26/20 [Rx] QUEtiapine [SEROquel] 50 mg PO BEDTIME 06/01/20 [History] Linezolid 600 mg PO BID #12 tablet 06/04/20 [Rx] Oxygen Therapy Mode: Room Air Patient Handouts: Linezolid tablets, Hematuria, Adult, Suprapubic Catheter Home Guide Referrals: Ken Jarquin MD [Primary Care Provider] - 06/13/20 9:00 am - Discharge Summary/Plan Comment DC Time >30 min.: No - Patient Data Vitals - Most Recent: Last Vital Signs Temp 36.6 C 06/05/20 08:14 Pulse 104 H 06/05/20 08:14 Resp 20 06/05/20 08:14 BP 118/83 06/05/20 10:40 Pulse Ox 95 06/05/20 08:14 Weight - Most Recent: 54 kg I&O - Last 24 hours: Intake & Output 06/04/20 06/05/20 06/05/20 22:59 06:59 14:59 Intake Total 500 200 300 Output Total 1045 325 350 Balance -545 -125 -50 Lab Results - Last 24 hrs: Laboratory Results - last 24 hr 06/04/20 Range/Units 15:10 SARS-CoV-2 RNA (IRA) NEGATIVE (NEGATIVE) Med Orders - Current: Current Medications Discontinued Medications Acetaminophen (Acetaminophen 325 Mg Tab) 650 mg PO Q4H PRN PRN Reason: Pain Last Admin: 06/04/20 20:30 Dose: 650 mg Documented by: Atorvastatin Calcium (Atorvastatin 40 Mg Tab) 80 mg PO BEDTIME [facility] Last Admin: 06/04/20 20:12 Dose: 80 mg Documented by: Haloperidol Lactate (Haloperidol Lactate 5 Mg/Ml Sdv) Confirm Administered Dose 5 mg .ROUTE .STK-MED ONE Stop: 06/01/20 23:02 Last Admin: 06/01/20 23:01 Dose: Not Given Documented by: Haloperidol Lactate (Haloperidol Lactate 5 Mg/Ml Sdv) 5 mg IM ONETIME ONE Stop: 06/01/20 22:51 Last Admin: 06/01/20 22:50 Dose: 5 mg Documented by: Ceftriaxone Sodium/Dextrose 1 (gm/ Premix) 50 mls @ 100 mls/hr IV 06/01/20@1200 [facility] Stop: 06/01/20 12:29 Last Admin: 06/01/20 12:02 Dose: 100 mls/hr Documented by: Ceftriaxone Sodium/Dextrose 1 (gm/ Premix) 50 mls @ 100 mls/hr IV Q24H [facility] Last Admin: 06/03/20 10:33 Dose: 100 mls/hr Documented by: Linezolid (Linezolid 600 Mg Tab) 600 mg PO Q12H [facility] Last Admin: 06/05/20 10:44 Dose: 600 mg Documented by: Lisinopril (Lisinopril 10 Mg Tab) 20 mg PO DAILY [facility] Last Admin: 06/05/20 10:40 Dose: 20 mg Documented by: Lorazepam (Lorazepam 1 Mg Tab) Confirm Administered Dose 0 mg .ROUTE .STK-MED ONE Stop: 06/02/20 00:12 Last Admin: 06/02/20 03:09 Dose: Not Given Documented by: Lorazepam (Lorazepam 1 Mg Tab) 1 mg PO Q8H PRN PRN Reason: Anxiety Last Admin: 06/04/20 20:13 Dose: 1 mg Documented by: Olanzapine (Olanzapine 10 Mg Vial) Confirm Administered Dose 10 mg .ROUTE .STK- MED ONE Stop: 06/02/20 00:30 Last Admin: 06/02/20 12:03 Dose: Not Given Documented by: Olanzapine (Olanzapine 10 Mg Vial) 5 mg IM ONETIME ONE Stop: 06/02/20 00:31 Last Admin: 06/02/20 12:03 Dose: Not Given Documented by: Olanzapine (Olanzapine 10 Mg Vial) 5 mg IM ONETIME ONE Stop: 06/02/20 23:54 Last Admin: 06/03/20 00:22 Dose: 5 mg Documented by: Olanzapine (Olanzapine 10 Mg Vial) 5 mg IM NOW ONE Stop: 06/03/20 23:46 Last Admin: 06/04/20 00:14 Dose: 5 mg Documented by: Quetiapine Fumarate (Quetiapine 50 Mg Tab) 50 mg PO BEDTIME [facility] Last Admin: 06/04/20 20:12 Dose: 50 mg Documented by: Trimethoprim/Sulfamethoxazole (Sulfamethoxazole/Trimethoprim 800-160 Mg Tab) 1 tab PO BID [facility] Last Admin: 06/04/20 08:28 Dose: 1 tab Documented by:
== END 2020-06-05 11:40 | DRG 699 ==
LOC: MW.ED 02:34 → MW.MS 07:11 → UNDOADMOB 07:11 → MW.MS 06-02 09:20 → OBSVTOIN 06-02 09:20
PROVIDERS: ADMIT Internal Medicine; ATTEND Internal Medicine
DX: T83.510A Infection and inflammatory reaction due to cystostomy catheter, initial encounter (principal); N39.0 Urinary tract infection, site not specified; R33.9 Retention of urine, unspecified; F05 Delirium due to known physiological condition; N13.8 Other obstructive and reflux uropathy; R31.0 Gross hematuria; I69.319 Unspecified symptoms and signs involving cognitive functions following cerebral infarction; F01.50 Vascular dementia, unspecified severity, without behavioral disturbance, psychotic disturbance, mood disturbance, and anxiety; N40.1 Benign prostatic hyperplasia with lower urinary tract symptoms; I10 Essential (primary) hypertension; Z86.73 Personal history of transient ischemic attack (TIA), and cerebral infarction without residual deficits; Z20.822 Contact with and (suspected) exposure to COVID-19; Z66 Do not resuscitate; E78.00 Pure hypercholesterolemia, unspecified; R33.8 Other retention of urine; Z79.82 Long term (current) use of aspirin; Z79.899 Other long term (current) drug therapy; Z87.442 Personal history of urinary calculi; Z86.16 Personal history of COVID-19; Z93.6 Other artificial openings of urinary tract status
CPT/HCPCS: 36415 ×2; 51702; 80048; 80053; 81001; 85025 ×2; 87086; 87088; 87186; 96365; 96372; 99284; G0378 ×3; J0696; J1630; J3490; U0002; 83735; 84100; 99218; 99231; 99232; 99238; 99283; A9270-GY

== ENCOUNTER 2020-07-04 15:13 | Emergency (ER) | payer MEDICARE, BC ==
[2020-07-04 17:14] LABS: CARBON DIOXIDE,CO2 26.2 mmol/L (21.0-32.0); POTASSIUM,K 4.9 mmol/L (3.5-5.1)
--- NOTE | 2020-07-04 21:17 | EDM.PDOC ---
ED HPI GENERAL MEDICAL PROBLEM - General Chief Complaint: Genitourinary Problem Stated Complaint: BLOOD IN URINE Time Seen by Provider: 07/04/20 15:15 Source of Information: Reports: Patient, Senior Living Records History Limitations: Reports: No Limitations - History of Present Illness INITIAL COMMENTS - FREE TEXT/NARRATIVE: HISTORY AND PHYSICAL: History of present illness: Patient is a 74-year-old male, with a h/p BPH s/p suprapubic catheter for urine retention, who presents emergency room today from [facility] with concern of blood clots in his urine causing difficulties with drainage of the catheter. Patient states that he has had issues with blood in his urine and periodically passing clots since the suprapubic catheter was placed in February by Dr. Magana. Patient states that he was supposed to have a recent follow-up appointment with Dr. Mcmahon, but this appointment got canceled as Dr. Mcmahon is now out of the office. Patient states he got another appointment set up with Dr. Hernandez, urology in [facility] for follow up but is unsure when the date of this appointment is. Patient states that he was admitted to the hospital for this and had irrigation of his bladder approximately 1 month ago. Patient denies any associated pain or any other symptoms or concerns. Patient denies fever, chills, chest pain, shortness of breath, or cough. Denies headache, neck stiff ness, change in vision, syncope, or near syncope. Denies nausea, vomiting, abdominal pain, diarrhea, constipation, or dysuria. Has not noted any blood in stool. Patient has been eating and drinking appropriately. Review of systems: As per history of present illness and below otherwise all systems reviewed and negative. Past medical history: As per history of present illness and as reviewed below otherwise noncontributory. Surgical history: As per history of present illness and as reviewed below otherwise noncontributory. Social history: See social history for further information Family history: As per history of present illness and as reviewed below otherwise noncontributory. Physical exam: General: Patient is alert, oriented, and in no acute distress. Patient sitting comfortably on exam table. Vitals stable and reviewed by me. HEENT: Atraumatic, normocephalic, pupils equal and reactive bilaterally, negative for conjunctival pallor or scleral icterus, mucous membranes moist, TMs normal bilaterally, throat clear, neck supple, nontender, trachea midline. No drooling or trismus noted. No meningeal signs. No hot potato voice noted. Lungs: Clear to auscultation, breath sounds equal bilaterally, chest nontender. Heart: S1S2, regular rate and rhythm without overt murmur Abdomen: Soft, nondistended, nontender. Negative for masses or h epatosplenomegaly. Negative for costovertebral tenderness. Pelvis: Stable nontender. Genitourinary: Bell Attendant at bedside Vipul Sky RN. Suprapubic catheter in place with gross hematuria / small clotting noted in the tube without properly draining. No erythema noted around the site of entrance. Rectal: Deferred. Skin: Intact, warm, dry. No lesions or rashes noted. Extremities: Atraumatic, negative for cords or calf pain. Neurovascular unremarkable. Neuro: Awake, alert, oriented. Cranial nerves II through XII unremarkable. Cerebellum unremarkable. Motor and sensory unremarkable throughout. Exam nonfocal. Notes: Dr. Marr / Dr. Mojica verbally involved in patient care. Upon arrival to the ED, patient is vitally stable, nontoxic, and well-appearing. History mentions patient has dementia, however, he is orientated to person place and time. He does have a suprapubic catheter that is in place that does have gross hematuria with a few clots noted in the folds of the Sinha cath in the bag is not properly draining. Will put a three-way Sinha in and irrigate the bladder to remove the clots. CBC shows hgb 12.3 and hct 37.5 which is stable from prior labwork. CMP unremarkable. UA contaminated with large amount of blood and patient asymptomatic for UTI. Will culture urine. Patient continuously irrigated for 4.5-5 hours with intermittent passing of small clots. Dr. Magana, urology, is unavailable. I did call and speak to the urologist on-call at [facility], Dr. Kay, and thoroughly discussed patient's case. Discussed that patient is having intermittent clots with obstruction that have to be manually dislodged using a syringe while being continuously irrigated. Dr. Kay, urology, states that patient does not need to continue the continuous irrigation, and he would recommend manual break up as needed with manual flushing and can be discharged back to the nursing facility and does not feel that patient needs to be admitted/transferred. He states that is as patient is asymptomatic, vitally stable, with a stable hemoglobin and hematocrit, he would not recommend transfer and recommends close follow up outpatient with the urologist. Strict return precautions thoroughly discussed with patient. Discussed importance for follow-up with the urologist. I did call the nursing staff at [facility] and discussed irrigation protocol to ensure Sinha continues to drain. Strict return precautions discussed with nursing staff. Voices understanding and is agreeable to plan of care. Denies any further questions or concerns at this time. Diagnostics: CBC, CMP, UA Therapeutics: 3 way sinha with continuous irrigation Prescription: None Impression: Suprapubic catheter obstruction secondary to hematuria Hematuria Plan: 1. Irrigate the catheter every 2 hours to ensure obstructions are loose. 2. Follow up with the urologist, Dr. Hernandez, as scheduled and as discussed. Return to the ED as needed and as discussed. Definitive disposition and diagnosis as appropriate pending reevaluation and review of above. Pelvic Pain Score (Numeric/FACES): 2 - Related Data Allergies Allergy/AdvReac Type Severity Reaction Status Date / Time No Known Allergies Allergy Verified 07/04/20 15:29 Home Meds: Home Meds atorvaSTATin [Lipitor] 80 mg PO BEDTIME #60 tablet 03/25/20 [Rx] lisinopriL [Lisinopril] 20 mg PO DAILY #30 03/25/20 [Rx] Aspirin 81 mg PO DAILY #30 tab.chew 03/26/20 [Rx] QUEtiapine [SEROquel] 50 mg PO BEDTIME 06/01/20 [History] Sertraline [Zoloft] 50 mg PO DAILY 07/04/20 [History] Past Medical History HEENT History: Reports: None Cardiovascular History: Reports: High Cholesterol, Hypertension Respiratory History: Reports: None Gastrointestinal History: Reports: None Genitourinary History: Reports: Renal Calculus Musculoskeletal History: Reports: None Neurological History: Reports: None Psychiatric History: Reports: Dementia Endocrine/Metabolic History: Reports: None Insulin Pump Model and Tire Rebuilder: None Hematologic History: Reports: None Immunologic History: Reports: None Oncologic (Cancer) History: Reports: None Dermatologic History: Reports: None - Infectious Disease History Infectious Disease History: Reports: Novel Coronavirus - Past Surgical History Head Surgeries/Procedures: Reports: None Social & Family History - Family History Family Medical History: No Pertinent Family History - Tobacco Use Tobacco Use Status *Q: Never Tobacco User Second Hand Smoke Exposure: No - Caffeine Use Caffeine Use: Reports: None - Recreational Drug Use Recreational Drug Use: No ED ROS GENERAL - Review of Systems Review Of Systems: Comprehensive ROS is negative, except as noted in HPI. ED EXAM, GENERAL - Physical Exam Exam: See Below (see dictation) Course - Vital Signs Last Recorded V/S: Last Vital Signs Temp 97.2 F 07/04/20 15:29 Pulse 84 07/04/20 16:53 Resp 17 07/04/20 15:29 BP 128/79 07/04/20 16:53 Pulse Ox 97 07/04/20 16:53 - Orders/Labs/Meds Orders: Active Orders 24 hr Category Date Time Status CULTURE URINE [RM] Stat Lab 07/04/20 16:20 Received Labs: Laboratory Tests 07/04/20 07/04/20 07/04/20 Range/Units 16:20 16:20 16:20 WBC 8.06 (4.0-11.0) K/uL RBC 4.29 L (4.50-5.90) M/uL Hgb 12.3 L (13.0-17.0) g/dL Hct 37.5 L (38.0-50.0) % MCV 87.4 (80.0-98.0) fL MCH 28.7 (27.0-32.0) pg MCHC 32.8 (31.0-37.0) g/dL RDW Std Deviation 45.8 (28.0-62.0) fl RDW Coeff of [place] 14 (11.0-15.0) % Plt Count 235 (150-400) K/uL MPV 10.40 (7.40-12.00) fL Neut % (Auto) 66.1 (48.0-80.0) % Lymph % (Auto) 20.0 (16.0-40.0) % [place] % (Auto) 10.3 (0.0-15.0) % Eos % (Auto) 3.2 (0.0-7.0) % Baso % (Auto) 0.4 (0.0-1.5) % Neut # (Auto) 5.3 (1.4-5.7) K/uL Lymph # (Auto) 1.6 (0.6-2.4) K/uL [place] # (Auto) 0.8 (0.0-0.8) K/uL Eos # (Auto) 0.3 (0.0-0.7) K/uL Baso # (Auto) 0.0 (0.0-0.1) K/uL Nucleated RBC % 0.0 /100WBC Nucleated RBCs # 0 K/uL Sodium 141 (136-148) mmol/L Potassium 4.9 (3.5-5.1) mmol/L Chloride 106 (98-107) mmol/L Carbon Dioxide 26.2 (21.0-32.0) mmol/L BUN 32 H (7.0-18.0) mg/dL Creatinine 1.2 (0.8-1.3) mg/dL Est Cr Clr Drug Dosing 44.27 mL/min Estimated GFR (MDRD) 59.5 ml/min Glucose 101 (74-106) mg/dL Calcium 8.9 (8.5-10.1) mg/dL Total Bilirubin 0.2 (0.2-1.0) mg/dL AST 27 (15-37) IU/L ALT 60 (14-63) IU/L Alkaline Phosphatase 90 (46-116) U/L Total Protein 6.6 (6.4-8.2) g/dL Albumin 3.2 L (3.4-5.0) g/dL Globulin 3.4 (2.6-4.0) g/dL Albumin/Globulin Ratio 0.9 (0.9-1.6) Urine Color YELLOW Urine Appearance CLEAR Urine pH 6.5 (5.0-8.0) Ur Specific [place] 1.025 (1.001-1.035) Urine Protein 100 H (NEGATIVE) mg/dL Urine Glucose (UA) 250 H (NEGATIVE) mg/dL Urine Ketones TRACE H (NEGATIVE) mg/dL Urine Occult Blood LARGE H (NEGATIVE) Urine Nitrite POSITIVE H (NEGATIVE) Urine Bilirubin SMALL H (NEGATIVE) Urine Ictotest NEGATIVE Urine Urobilinogen 1.0 (<2.0) EU/dL Ur Leukocyte Esterase MODERATE H (NEGATIVE) Urine RBC TOO NUMEROUS TO CT (0-2/HPF) Urine WBC 0-2 (0-5/HPF) Ur Epithelial Cells RARE (NONE-FEW) Urine Bacteria 1+ H (NEGATIVE) Urine Mucus RARE (NONE-MOD) Departure - Departure Time of Disposition: 21:03 Disposition: Home, Self-Care 01 Clinical Impression: Hematuria Qualifiers: Hematuria type: unspecified type Qualified Code(s): R31.9 - Hematuria, unspecified Obstruction of suprapubic catheter Qualifiers: Encounter type: initial encounter Qualified Code(s): T83.090A - Other mechanical complication of cystostomy catheter, initial encounter - Discharge Information Instructions: Hematuria, Adult Referrals: PCP,None [Primary Care Provider] - Forms: ED Department Discharge Additional Instructions: The following information is given to patients seen in the emergency department who are being discharged to home. This information is to outline your options for follow-up care. We provide all patients seen in our emergency department with a follow-up referral. The need for follow-up, as well as the timing and circumstances, are variable depending upon the specifics of your emergency department visit. If you don't have a primary care physician on staff, we will provide you with a referral. We always advise you to contact your personal physician following an emergency department visit to inform them of the circumstance of the visit and for follow-up with them and/or the need for any referrals to a consulting specialist. The emergency department will also refer you to a specialist when appropriate. This referral assures that you have the opportunity for follow-up care with a specialist. All of these measure are taken in an effort to provide you with optimal care, which includes your follow-up. Under all circumstances we always encourage you to contact your private physician who remains a resource for coordinating your care. When calling for follow-up care, please make the office aware that this follow-up is from your recent emergency room visit. If for any reason you are refused follow-up, please contact the [facility] Emergency Department at and asked to speak to the emergency department charge nurse. [facility] [address] [place] [id number] [id number] 1. Irrigate the catheter every 2 hours to ensure obstructions are loose. 2. Follow up with the urologist, Dr. Hernandez, as scheduled and as discussed. Return to the ED as needed and as discussed. Sepsis Event Note (ED) - Evaluation Sepsis Screening Result: No Definite Risk - My Orders Last 24 Hours: My Active Orders 07/04/20 16:20 CULTURE URINE [RM] Stat - Assessment/Plan Last 24 Hours: My Active Orders 07/04/20 16:20 CULTURE URINE [RM] Stat
--- NOTE | 2020-07-04 21:21 | PCM.SN.2 ---
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
== END 2020-07-04 21:48 | disposition home or self-care (01) ==
LOC: MW.ED 15:13
DX: T83.090A Other mechanical complication of cystostomy catheter, initial encounter (principal); R31.9 Hematuria, unspecified; E78.00 Pure hypercholesterolemia, unspecified; I10 Essential (primary) hypertension; Z79.82 Long term (current) use of aspirin; Z79.899 Other long term (current) drug therapy
CPT/HCPCS: 36415; 51702; 80053; 81001; 85025; 87086; 87088; 87186; 99283; 99283-25